=== PATIENT | female | born 1950 | race Caucasian/White ===

== ENCOUNTER 2020-01-14 10:35 | Inpatient (IN) | payer MEDICARE ==
[~2020-01-14] VITALS: Ht 157.5 cm; Wt 152.4 kg
[2020-01-14 10:55] LABS: BASOPHILS % (AUTO) 0.5 % (0.0-5.0); EOSINOPHILS % (AUTO) 7.7 % (0.0-8.0); HEMATOCRIT 37.8 % (36-48); LYMPHOCYTES % (AUTO) 21.8 % (21.0-51.0); MEAN CORPUSCULAR HEMOGLOBIN 30.4 pg (27.0-33.0); MEAN CORPUSCULAR HGB CONC 32.3 g/dL (32.0-36.0); MEAN CORPUSCULAR VOLUME 94.3 fL (79-99); MONOCYTES % (AUTO) 7.9 % (3.0-13.0); NEUTROPHILS % (AUTO) 61.8 % (40.0-77.0); PLATELET COUNT (AUTO) 235 K/uL (130-400); RED BLOOD CELL COUNT(AUTO) 4.01 MIL/uL (4.00-5.50); WHITE BLOOD COUNT (AUTO) 6.2 K/uL (4.8-10.8)
[2020-01-14 11:05] LABS: ALBUMIN 3.2 g/dL (3.5-5.0); BILIRUBIN,TOTAL 0.4 mg/dL (0.2-1.0); CREATININE 0.9 mg/dL (0.5-1.5); POTASSIUM 3.9 mmol/L (3.5-5.1)
[2020-01-14 11:43] LABS: B-TYPE NATRIURETIC PEPTIDE 34 pg/mL (0-100)
[2020-01-14 12:27] LABS: INR 0.91 (0.85-1.15); PARTIAL THROMBOPLASTIN TIME 26.6 SEC (26.3-35.5); PROTHROMBIN TIME 9.9 SEC (9.6-11.6)
[2020-01-14 13:17] LABS: APPEARANCE,URINE Clear (CLEAR); BILIRUBIN,URINE Negative (NEGATIVE); COLOR,URINE Yellow (YELLOW); GLUCOSE, URINE (UA) Negative (NEGATIVE); KETONES,URINE Negative (NEGATIVE); LEUKOCYTE ESTERASE ,URINE Negative (NEGATIVE); NITRATE,URINE Negative (NEGATIVE); OCCULT BLOOD,URINE Negative (NEGATIVE); PROTEIN,URINE Negative (NEGATIVE); UROBILINOGEN,URINE 0.2 mg/dL (0.2-1.0)
[2020-01-14] MEDS ORDERED: KETOROLAC TROMETHAMINE 30MG/ML ONE (13:38)
[2020-01-14] MEDS ORDERED: FUROSEMIDE 10 MG/ML 4ML VIAL ONE (13:38)
[2020-01-14] MEDS ORDERED: SODIUM CHLORIDE 0.9% 1000ML 1,000 ML IV ONE (15:22)
[2020-01-14] MEDS ORDERED: ZOSYN 3.375GM+NS 50ML 50 ML IV ONE (15:22)
[2020-01-14] MEDS ORDERED: DEXTROSE 50%-WATER 50 ML DISP.SYRIN IV PRN (15:30)
[2020-01-14] MEDS ORDERED: ASPIRIN 325MG EC TAB 325 MG TABLET.DR PO SCH (15:30)
[2020-01-14] MEDS ORDERED: GLUCAGON 1MG KIT 1 MG ML IM PRN (15:30)
[2020-01-14] MEDS ORDERED: NITROGLYCERIN 0.4 MG SL TAB SL PRN (15:30)
[2020-01-14] MEDS ORDERED: ONDANSETRON HCL 4 MG/2 ML VIAL IVP PRN (15:30)
[2020-01-14] MEDS ORDERED: METOPROLOL TARTRATE 25 MG TAB ONE (15:46)
[2020-01-14] MEDS: ZOSYN 3.375GM+NS 50ML 50 ML IV SCH (16:00)
[2020-01-14 16:08] LABS: CREATINE KINASE, TOTAL 116 U/L (21-232); MYOGLOBIN 45 ng/mL (10-92); TROPONIN I 0.11 ng/mL (0.00-0.06)
[2020-01-14] MEDS ORDERED: SODIUM CHLORIDE 0.9% 1000ML 1,000 ML IV SCH (16:15)
[2020-01-14] MEDS ORDERED: POTASSIUM CHLORIDE 20MEQ/100ML 100 ML IV PRN (16:15)
[2020-01-14] MEDS ORDERED: POTASSIUM CHLORIDE 10% ELIXIR 20 MEQ/15 ML UDCUP PO PRN (16:15)
[2020-01-14] MEDS ORDERED: GUAIFENESIN-DM 200/20 MG 10 ML PO PRN (16:15)
[2020-01-14] MEDS ORDERED: LIDOCAINE HCL-MPF 1% 2ML VIAL IJ PRN (16:15)
[2020-01-14] MEDS ORDERED: ACETAMINOPHEN 325 MG TAB PO PRN ×2 (16:15)
[2020-01-14 16:18] LABS: HEMOGLOBIN A1C 9.2 % (4.0-6.0)
[2020-01-14] MEDS: INSULIN HUMULIN R 100 UNIT/ML 3ML SQ SCH ×2 (16:30→21:00)
[2020-01-14 17:17] VITALS: BP 140/52
[2020-01-14] MEDS ORDERED: RENAL DOSE IV SCH ×2 (17:30)
[2020-01-14] MEDS ORDERED: VANCOMYCIN PROTOCOL PER PHARMACY IV SCH (17:45)
[2020-01-14] MEDS ORDERED: COMPOUND IV REFRIGERATED 1 EACH IVSOLN MISC PRN (17:45)
[2020-01-14] MEDS ORDERED: VANCOMYCIN 2 GM in SODIUM CHLORIDE 0.9% 500ML 500 ML IV ONE (18:00)
[2020-01-14] MEDS ORDERED: CEPH500C2 PO (18:05)
[2020-01-14] MEDS ORDERED: SULF1TAB41 PO (18:07)
[2020-01-14] MEDS ORDERED: ACET1TAB25 PO (18:09)
[2020-01-14] MEDS: PANTOPRAZOLE SODIUM 40 MG TABLET.DR PO SCH (19:45)
[2020-01-14] MEDS: ATORVASTATIN CALCIUM 20 MG TABLET PO SCH (20:23)
[2020-01-14] MEDS: FUROSEMIDE 10 MG/ML 2ML VIAL IVP SCH (20:24)
[2020-01-14] MEDS: METOPROLOL TARTRATE 25 MG TAB PO SCH (20:24)
[2020-01-14] MEDS: ENOXAPARIN SODIUM 120 MG/0.8ML SQ SCH (20:24)
[2020-01-14 20:38] VITALS: BP 126/50
[2020-01-14] MEDS ORDERED: CLOPIDOGREL BISULFATE 300 MG TAB PO SCH (20:45)
[2020-01-14 21:30] LABS: TROPONIN I 0.11 ng/mL (0.00-0.06)
[2020-01-14 21:34] LABS: CRP QUANTITATIVE 59.4 mg/L (0.00-9.0); THYROID STIMULATING HORMONE 2.46 uIU/mL (0.36-3.74)
[2020-01-14] MEDS: MORPHINE SULFATE 2 MG/ML 1ML SYG IVP PRN (22:28)
[2020-01-15] MEDS: ZOSYN 3.375GM+NS 50ML 50 ML IV SCH ×2 (00:24→08:20)
[2020-01-15 00:32] VITALS: BP 116/50
[2020-01-15] MEDS: MORPHINE SULFATE 2 MG/ML 1ML SYG IVP PRN ×2 (04:15→17:58)
[2020-01-15 04:45] VITALS: BP 135/47
[2020-01-15 04:50] LABS: BASOPHILS % (AUTO) 0.3 % (0.0-5.0); EOSINOPHILS % (AUTO) 6.6 % (0.0-8.0); LYMPHOCYTES % (AUTO) 19.4 % (21.0-51.0); MEAN CORPUSCULAR HEMOGLOBIN 29.9 pg (27.0-33.0); MEAN CORPUSCULAR HGB CONC 31.9 g/dL (32.0-36.0); MEAN CORPUSCULAR VOLUME 93.7 fL (79-99); MONOCYTES % (AUTO) 5.9 % (3.0-13.0); NEUTROPHILS % (AUTO) 67.3 % (40.0-77.0); PLATELET COUNT (AUTO) 229 K/uL (130-400); RED BLOOD CELL COUNT(AUTO) 3.95 MIL/uL (4.00-5.50); RED CELL DISTRIBUTION WIDTH 13.2 % (11.0-15.5); WHITE BLOOD COUNT (AUTO) 6.6 K/uL (4.8-10.8)
[2020-01-15 05:01] LABS: CREATININE 0.9 mg/dL (0.5-1.5); POTASSIUM 3.7 mmol/L (3.5-5.1)
[2020-01-15] MEDS: INSULIN HUMULIN R 100 UNIT/ML 3ML SQ SCH ×4 (05:57→21:05)
[2020-01-15 08:00] VITALS: BP 131/50
[2020-01-15] MEDS: PANTOPRAZOLE SODIUM 40 MG TABLET.DR PO SCH (08:20)
[2020-01-15] MEDS: METOPROLOL TARTRATE 25 MG TAB PO SCH (08:20)
[2020-01-15] MEDS: CLOPIDOGREL BISULFATE 75 MG TAB PO SCH (08:21)
[2020-01-15] MEDS: ASPIRIN 81MG TAB.CHEW PO SCH (08:21)
[2020-01-15] MEDS: ENOXAPARIN SODIUM 120 MG/0.8ML SQ SCH (08:22)
[2020-01-15] MEDS: FUROSEMIDE 10 MG/ML 2ML VIAL IVP SCH (08:22)
[2020-01-15] MEDS: NITROGLYCERIN 0.2 MG/HR PATCH TD SCH (08:23)
--- NOTE | 2020-01-15 08:40 | NUR ---
DYSPHAGIA EVAL COMPLETED. -S/S OF ASPIRATION AT THIS TIME. RECOMMEND REGULAR SOLIDS, THIN LIQUIDS, PILLS WHOLE WITH LIQUIDS TOLERATED. STRICT COMPENSATORY STRATEGIES: SITTING UPRIGHT, SMALL BITES/SIPS, SLOW PACE WITH P.O. INTAKE. DIRECTOR OF SOLUTIONS ARCHITECTURE EDUCATED PATIENT ON RISKS AND CONSEQUENCES OF ASPIRATION. PATIENT VOICED UNDERSTANDING. ALL QUESTIONS ANSWERED AT THIS TIME. DIRECTOR OF SOLUTIONS ARCHITECTURE COORDINATED RESULTS AND RECOMMENDATIONS WITH NURSE VYAS ABOUT THE IMPORTANCE OF EATING IN AN UPRIGHT POSITION. Addendum: 01/15/[address]IMMY SOTO Amended: Links added.
[2020-01-15] MEDS ORDERED: ISOSORBIDE MONO 30MG TAB SR PO SCH (09:00)
[2020-01-15] MEDS ORDERED: ENOXAPARIN SODIUM 40 MG/0.4 ML SYRINGE SQ SCH (09:00)
[2020-01-15] MEDS: VANCOMYCIN 1.5 GM in SODIUM CHLORIDE 0.9% 250 ML IV SCH (10:28)
[2020-01-15] MEDS ORDERED: ISOSORBIDE MONO 60 MG TAB.SR PO SCH (11:15)
[2020-01-15] MEDS ORDERED: FUROSEMIDE 10 MG/ML 2ML VIAL IV SCH (11:30)
[2020-01-15] MEDS: CEFAZOLIN SODIUM 1 GM VIAL IVP SCH ×2 (11:54→21:01)
[2020-01-15] MEDS: ACETAMINOPHEN-CODEINE 300/30MG TAB PO PRN (11:54)
[2020-01-15 12:00] VITALS: BP 119/50
[2020-01-15] MEDS: METOPROLOL TARTRATE 50 MG TAB PO SCH ×2 (12:00→21:00)
--- NOTE | 2020-01-15 12:46 | NUR ---
DR. KEYES HERE , FOR WOUND CARE. AND EXPLAIN TO PT OF PLAN OF CARE,
[2020-01-15] MEDS ORDERED: HEPARIN IV SCH ×2 (14:15)
[2020-01-15] MEDS ORDERED: SODIUM CHLORIDE 0.9% IV SCH ×2 (14:15)
[2020-01-15 16:09] VITALS: BP 101/47
--- NOTE | 2020-01-15 16:14 | NUR ---
[facility] CM met with pt and spouse in room discussed dc plans. Pt verbalized she was independent before until recently became semi-independent, lives at home with spouse. Pt has a rollator walker, shower chair for spouse, and cane. Denies any other equipments/services. Feels safe to go back home, doesn't drive, spouse able to assist with transportation and needs as necessary. DC plan to home once stable. CM to continue to follow up. Addendum: 01/15/20 at 1616 by SHEN CHOI LVN CM Amended: Links added.
[2020-01-15] MEDS: FUROSEMIDE 10 MG/ML 2ML VIAL IV SCH (17:48)
[2020-01-15 19:25] LABS: INR 0.93 (0.85-1.15); PARTIAL THROMBOPLASTIN TIME 30.3 SEC (26.3-35.5); PROTHROMBIN TIME 10.1 SEC (9.6-11.6)
[2020-01-15] MEDS ORDERED: HEPARIN 25000 UNITS/250 ML D5W 250 ML IV SCH (20:00)
[2020-01-15 20:30] VITALS: BP 100/46
[2020-01-15] MEDS ORDERED: DIPHENHYDRAMINE HCL 25 MG CAPSULE PO SCH (20:30)
[2020-01-15] MEDS: ATORVASTATIN CALCIUM 20 MG TABLET PO SCH (21:01)
[2020-01-15] MEDS ORDERED: HEPARIN SODIUM 5000UNIT/ML 1ML VIAL ONE (21:51)
[2020-01-15] MEDS: HEPARIN IV SCH ×2 (21:59)
[2020-01-15] MEDS: SODIUM CHLORIDE 0.9% IV SCH ×2 (21:59)
[2020-01-15] MEDS ORDERED: HEPARIN SODIUM 5000UNIT/ML 1ML VIAL IV SCH (23:00)
[2020-01-16] VITALS: BP 110/52
[2020-01-16] MEDS: FUROSEMIDE 10 MG/ML 2ML VIAL IV SCH ×3 (00:10→16:49)
[2020-01-16] MEDS: INSULIN HUMULIN R 100 UNIT/ML 3ML SQ SCH ×5 (00:10→21:14)
[2020-01-16] MEDS: MORPHINE SULFATE 2 MG/ML 1ML SYG IVP PRN ×2 (00:45→22:43)
[2020-01-16] MEDS: CEFAZOLIN SODIUM 1 GM VIAL IVP SCH ×3 (03:11→21:04)
[2020-01-16] MEDS ORDERED: HEPARIN 25000 UNITS/250 ML D5W 250 ML IV ONE (04:24)
[2020-01-16] MEDS ORDERED: SODIUM CHLORIDE 0.9% 250 ML IV ONE (04:55)
[2020-01-16] MEDS ORDERED: HEPARIN SODIUM 5000UNIT/ML 1ML VIAL ONE (04:59)
--- NOTE | 2020-01-16 05:07 | NUR ---
HEPARIN DRIP IN NS MIXED IN PHARMACY, NOT AVAILABLE AND DRIP HANGING IS COMPLETE. 250ML NS PULLED FROM [email or web address] ALONG WITH 25,000 UNITS OF HEPARIN (5 VIALS OF 5,000 UNITS). HEPARIN DRAWN UP AND MIXED IN 250ML NS. WITNESS BY 2ND RN.
[2020-01-16 05:09] VITALS: BP 116/53
[2020-01-16 05:38] LABS: BASOPHILS % (AUTO) 0.2 % (0.0-5.0); EOSINOPHILS % (AUTO) 7.7 % (0.0-8.0); HEMATOCRIT 35.7 % (36-48); LYMPHOCYTES % (AUTO) 16.3 % (21.0-51.0); MEAN CORPUSCULAR HEMOGLOBIN 30.7 pg (27.0-33.0); MEAN CORPUSCULAR HGB CONC 32.8 g/dL (32.0-36.0); MEAN CORPUSCULAR VOLUME 93.7 fL (79-99); MONOCYTES % (AUTO) 6.6 % (3.0-13.0); NEUTROPHILS % (AUTO) 68.8 % (40.0-77.0); PLATELET COUNT (AUTO) 254 K/uL (130-400); RED BLOOD CELL COUNT(AUTO) 3.81 MIL/uL (4.00-5.50); RED CELL DISTRIBUTION WIDTH 12.8 % (11.0-15.5); WHITE BLOOD COUNT (AUTO) 9.5 K/uL (4.8-10.8)
--- NOTE | 2020-01-16 05:43 | NUR ---
PT REFUSED COVID PCR SWAB
[2020-01-16 05:49] LABS: CREATININE 0.9 mg/dL (0.5-1.5); MAGNESIUM 1.7 mg/dL (1.80-2.40); POTASSIUM 3.5 mmol/L (3.5-5.1)
[2020-01-16] MEDS: POTASSIUM CHLORIDE 20 MEQ ERTAB PO PRN ×2 (05:54→21:05)
[2020-01-16 05:55] LABS: INR 1.02 (0.85-1.15)
[2020-01-16 06:34] LABS: PARTIAL THROMBOPLASTIN TIME > 120.0 SEC (26.3-35.5)
--- NOTE | 2020-01-16 07:43 | NUR ---
DR. WATKINS IN TO SEE PT.
--- NOTE | 2020-01-16 08:00 | NUR ---
DR. KLEIN IN TO SEE PT, DISCUSSED AT LENGTH PROS AND CONS OF HAVING A HEART CATH. , PT. OPTED TO BE TREATED CONSERVATIVELY WITH MEDICATIONS ONLY.
--- NOTE | 2020-01-16 08:20 | NUR ---
FOLLOW UP COMPLETED. STUFFER COORDINATED WITH NURSE TANNER. PER NURSE, PATIENT WAS NPO FOR PROCEDURE. HOWEVER, PROCEDURE WAS CANCELLED AND WILL RESUME WITH P.O. STUFFER WILL FOLLOW UP WITH NURSE TO SEE HOW PATIENT TOLERATES RECOMMENDED DIET. Addendum: 01/16/[address] JIMMY SOTO Amended: Links added.
[2020-01-16] MEDS ORDERED: POTASSIUM CHLORIDE 20 MEQ ERTAB PO SCH (08:30)
[2020-01-16] MEDS: ASPIRIN 81MG TAB.CHEW PO SCH (08:50)
[2020-01-16] MEDS: METOPROLOL TARTRATE 50 MG TAB PO SCH ×2 (08:50→21:05)
[2020-01-16] MEDS: PANTOPRAZOLE SODIUM 40 MG TABLET.DR PO SCH (08:50)
[2020-01-16] MEDS: CLOPIDOGREL BISULFATE 75 MG TAB PO SCH (08:51)
[2020-01-16] MEDS: NITROGLYCERIN 0.2 MG/HR PATCH TD SCH (08:51)
[2020-01-16] MEDS: VANCOMYCIN 1.5 GM in SODIUM CHLORIDE 0.9% 250 ML IV SCH (08:52)
[2020-01-16 09:16] VITALS: BP 127/52
--- NOTE | 2020-01-16 09:30 | NUR ---
VACUUM APPLICATOR OPERATOR NOTIFIED OF HEART CATH BEING CX.
[2020-01-16] MEDS: VANCOMYCIN 1.75 GM in SODIUM CHLORIDE 0.9% 250 ML IV SCH (10:07)
[2020-01-16] MEDS: MAGNESIUM 2GM PREMIX 50ML 50 ML IV SCH (10:07)
[2020-01-16 12:40] LABS: INR 0.98 (0.85-1.15); PARTIAL THROMBOPLASTIN TIME 75.8 SEC (26.3-35.5); PROTHROMBIN TIME 10.6 SEC (9.6-11.6)
[2020-01-16 13:12] VITALS: BP_SYST 106; BP_DIAS 43; BP_DIAS 90
[2020-01-16] MEDS ORDERED: INSULIN GLARGINE 100 UNITS/ML 10 ML VIAL SQ ONE (14:30)
--- NOTE | 2020-01-16 14:49 | NUR ---
[facility] CONSULT PATIENT WAS SEEN BY [facility] PHYSICIAN DR. SRINI HSU ON 01/15/2020; REPORT AND ORDERS GIVEN TO FLOOR NURSE. Addendum: 01/16/20 at 1452 by JANINA CARTY LVN LVN W Amended: Links added.
--- NOTE | 2020-01-16 16:16 | NUR ---
RD NOTIFICATION Pt admitted due to BLE cellulitis, chest pain, and CHF exacerbation RD consulted due to new DM dx. Pt is currently on a CLD. Pt was previously on a 75 gm CC diet and consuming 100% Pt's current BMI of 65.3 is considered Obesity III. 310% IBW classified as Morbid obesity. RD RECOMMENDATION: When medically feasible to advance diet, consider a 75 gm CC with a heart healthy modifier (low Na, low fat, low cholesterol) Monitor PO intake RD to follow with diet education. Handouts placed in medical chart and left with RN. - handouts left in chart: Type 2 DM, Sodium free flavoring tips, and Fast restricted diet educations. RD will continue to follow LABS: BG 189, A1C 9.2, MG 1.7, TOT CA 8.7, ALB 3.2, TG 210, CHOL 215, LDL 137 Addendum: 01/16/20 at [address] Amended: Links added.
[2020-01-16 16:36] VITALS: BP 113/49
[2020-01-16 20:32] LABS: INR 0.94 (0.85-1.15); PARTIAL THROMBOPLASTIN TIME 31.8 SEC (26.3-35.5); PROTHROMBIN TIME 10.2 SEC (9.6-11.6)
[2020-01-16 20:45] VITALS: BP 124/52
[2020-01-16] MEDS: ATORVASTATIN CALCIUM 20 MG TABLET PO SCH (21:05)
[2020-01-16] MEDS: SODIUM CHLORIDE 0.9% IV SCH ×2 (21:26)
[2020-01-16] MEDS: HEPARIN IV SCH ×2 (21:26)
[2020-01-16] MEDS: ACETAMINOPHEN-CODEINE 300/30MG TAB PO PRN (21:50)
[2020-01-17] VITALS (7 sets, daily range): BP systolic 103–131; BP diastolic 44–59
[2020-01-17] MEDS: FUROSEMIDE 10 MG/ML 2ML VIAL IV SCH ×3 (00:26→21:33)
[2020-01-17] MEDS: POTASSIUM CHLORIDE 20 MEQ ERTAB PO PRN ×3 (00:28→23:43)
[2020-01-17 02:57] LABS: HEMATOCRIT 35.3 % (36-48); MEAN CORPUSCULAR HEMOGLOBIN 30.6 pg (27.0-33.0); MEAN CORPUSCULAR HGB CONC 32.6 g/dL (32.0-36.0); MEAN CORPUSCULAR VOLUME 93.9 fL (79-99); PLATELET COUNT (AUTO) 220 K/uL (130-400); RED BLOOD CELL COUNT(AUTO) 3.76 MIL/uL (4.00-5.50); RED CELL DISTRIBUTION WIDTH 13.1 % (11.0-15.5); WHITE BLOOD COUNT (AUTO) 8.3 K/uL (4.8-10.8)
[2020-01-17 03:14] LABS: ALBUMIN 2.4 g/dL (3.5-5.0); BILIRUBIN,TOTAL 0.4 mg/dL (0.2-1.0); CREATININE 1.2 mg/dL (0.5-1.5); MAGNESIUM 3.2 mg/dL (1.80-2.40); POTASSIUM 3.8 mmol/L (3.5-5.1); TOTAL PROTEIN, SERUM 5.9 g/dL (6.0-8.3)
[2020-01-17] MEDS: CEFAZOLIN SODIUM 1 GM VIAL IVP SCH ×3 (03:17→21:32)
[2020-01-17] MEDS: ACETAMINOPHEN-CODEINE 300/30MG TAB PO PRN (03:27)
[2020-01-17 03:54] LABS: INR 0.99 (0.85-1.15); PROTHROMBIN TIME 10.7 SEC (9.6-11.6)
[2020-01-17 04:00] LABS: PARTIAL THROMBOPLASTIN TIME 117.4 SEC (26.3-35.5)
[2020-01-17 05:13] LABS: BAND NEUTROPHILS % (MANUAL) 5 % (0-2); BASOPHILS % (MANUAL) 2 % (0-2); EOSINOPHILS % (MANUAL) 12 % (1-6); LYMPHOCYTES % (MANUAL) 15 % (22-44); MAN.DIFF COMMENT-IMPRESSION MANUAL DIFFERENTIAL; MONOCYTES % (MANUAL) 8 % (2-9); REACTIVE LYMPHOCYTES 2 % (0-0); SEGMENTED NEUTROPHILS % 56 % (40-70)
[2020-01-17] MEDS: INSULIN HUMULIN R 100 UNIT/ML 3ML SQ SCH ×7 (05:44→21:37)
[2020-01-17] MEDS ORDERED: INSULIN GLARGINE 100 UNITS/ML 10 ML VIAL SQ SCH (07:00)
[2020-01-17] MEDS: VANCOMYCIN 1.5 GM in SODIUM CHLORIDE 0.9% 250 ML IV SCH (08:06)
[2020-01-17] MEDS ORDERED: HEPARIN 25000 UNITS/250 ML D5W 250 ML IV ONE ×2 (08:22→22:49)
[2020-01-17 09:00] LABS: INR 0.98 (0.85-1.15); PARTIAL THROMBOPLASTIN TIME 57.1 SEC (26.3-35.5); PROTHROMBIN TIME 10.6 SEC (9.6-11.6)
[2020-01-17] MEDS: METOPROLOL TARTRATE 50 MG TAB PO SCH ×2 (09:36→21:32)
[2020-01-17] MEDS: CLOPIDOGREL BISULFATE 75 MG TAB PO SCH (09:54)
[2020-01-17] MEDS: ASPIRIN 81MG TAB.CHEW PO SCH (09:54)
[2020-01-17] MEDS: PANTOPRAZOLE SODIUM 40 MG TABLET.DR PO SCH (09:54)
[2020-01-17] MEDS: NITROGLYCERIN 0.2 MG/HR PATCH TD SCH (10:04)
[2020-01-17] MEDS: VANCOMYCIN 1.75 GM in SODIUM CHLORIDE 0.9% 250 ML IV SCH (10:20)
[2020-01-17] MEDS: ATORVASTATIN CALCIUM 20 MG TABLET PO SCH (21:32)
[2020-01-18] MEDS: ACETAMINOPHEN-CODEINE 300/30MG TAB PO PRN ×2 (00:20→18:46)
[2020-01-18 04:27] VITALS: BP 101/48
[2020-01-18 05:08] LABS: BASOPHILS % (AUTO) 0.5 % (0.0-5.0); EOSINOPHILS % (AUTO) 10.6 % (0.0-8.0); HEMATOCRIT 36.6 % (36-48); LYMPHOCYTES % (AUTO) 22.5 % (21.0-51.0); MEAN CORPUSCULAR HEMOGLOBIN 30.4 pg (27.0-33.0); MEAN CORPUSCULAR HGB CONC 32.5 g/dL (32.0-36.0); MEAN CORPUSCULAR VOLUME 93.4 fL (79-99); MONOCYTES % (AUTO) 7.5 % (3.0-13.0); NEUTROPHILS % (AUTO) 58.5 % (40.0-77.0); PLATELET COUNT (AUTO) 260 K/uL (130-400); RED BLOOD CELL COUNT(AUTO) 3.92 MIL/uL (4.00-5.50); RED CELL DISTRIBUTION WIDTH 12.8 % (11.0-15.5); WHITE BLOOD COUNT (AUTO) 8.6 K/uL (4.8-10.8)
[2020-01-18 05:28] LABS: CREATININE 1.1 mg/dL (0.5-1.5); POTASSIUM 3.8 mmol/L (3.5-5.1)
[2020-01-18] MEDS: CEFAZOLIN SODIUM 1 GM VIAL IVP SCH (05:54)
[2020-01-18] MEDS: INSULIN HUMULIN R 100 UNIT/ML 3ML SQ SCH ×7 (06:15→20:57)
--- NOTE | 2020-01-18 06:39 | NUR ---
NEW UPDATE WAS GIVEN 40MEQ KDUR FOR A K+ OF 3.6, 3.8 RESULT THIS AM. CONTINUES ON THE HEPARIN DRIP BY DR. NULL FOR ACS PROTOCOL WITH PLANS TO STOP TODAY AND PT TO BE STARTED ON SOME ANTICOAGULANT BY THE [facility]. PTT AT 57.7 AND 68.9 AT MN AND 0600, NO CHANGES MADE ON THE DRIP RATE. BLE LESS SWOLLEN, LEGS WRINKLY AND HAD GOTTEN A LOT SMALLER, PT HAPPY ABOUT THIS. WITH 1,700 CC URINE OUTPUT FROM THE FC, PT NOW ON LASIX 20MG IV Q 12HRS. PT WANTED TO BE ABLE TO MOVE MORE LIKE TO START AMBULATING INSIDE THE ROOM WITH PT.
[2020-01-18 07:47] VITALS: BP 140/55
[2020-01-18] MEDS: METOPROLOL TARTRATE 50 MG TAB PO SCH ×2 (08:45→20:56)
[2020-01-18] MEDS: ASPIRIN 81MG TAB.CHEW PO SCH (08:45)
[2020-01-18] MEDS: CLOPIDOGREL BISULFATE 75 MG TAB PO SCH (08:45)
[2020-01-18] MEDS: PANTOPRAZOLE SODIUM 40 MG TABLET.DR PO SCH (08:45)
[2020-01-18] MEDS: VANCOMYCIN 1.75 GM in SODIUM CHLORIDE 0.9% 250 ML IV SCH (08:46)
[2020-01-18] MEDS: FUROSEMIDE 10 MG/ML 2ML VIAL IV SCH (08:46)
[2020-01-18] MEDS: VANCOMYCIN 1.5 GM in SODIUM CHLORIDE 0.9% 250 ML IV SCH (08:46)
[2020-01-18] MEDS: INSULIN GLARGINE 100 UNITS/ML 10 ML VIAL SQ SCH (08:49)
--- NOTE | 2020-01-18 09:10 | NUR ---
FOLLOW UP COMPLETED. PIPE MAKER COORDINATED WITH NURSE MCKEE. PER NURSE, NO CONCERNS WITH PATIENT'S DIET NOR S/S OF ASPIRATION NOTED. PLEASE NOTIFY PIPE MAKER IF ANY S/S OF ASPIRATION ARE NOTED. Addendum: 01/18/[address]ITTANY Amended: Links added.
[2020-01-18 11:36] VITALS: BP 118/59
[2020-01-18] MEDS: LEVOFLOXACIN 500 MG TABLET PO SCH (12:23)
[2020-01-18] MEDS: NITROGLYCERIN 0.2 MG/HR PATCH TD SCH (12:23)
[2020-01-18] MEDS: MORPHINE SULFATE 2 MG/ML 1ML SYG IVP PRN (13:31)
[2020-01-18 16:30] VITALS: BP 125/69
[2020-01-18] MEDS: FUROSEMIDE 40 MG TABLET PO SCH (16:46)
[2020-01-18] MEDS ORDERED: DIPHENHYDRAMINE HCL 25 MG CAPSULE PO ONE (18:30)
[2020-01-18] MEDS: ENOXAPARIN SODIUM 40 MG/0.4 ML SYRINGE SQ SCH (18:39)
[2020-01-18 20:00] VITALS: BP 121/58
[2020-01-18] MEDS: ATORVASTATIN CALCIUM 20 MG TABLET PO SCH (20:56)
[2020-01-19] VITALS (7 sets, daily range): BP systolic 106–143; BP diastolic 52–68
[2020-01-19] MEDS: INSULIN HUMULIN R 100 UNIT/ML 3ML SQ SCH ×7 (06:10→20:06)
[2020-01-19] MEDS: INSULIN GLARGINE 100 UNITS/ML 10 ML VIAL SQ SCH (06:38)
[2020-01-19 08:07] LABS: CREATININE 1.1 mg/dL (0.5-1.5); MAGNESIUM 1.9 mg/dL (1.80-2.40); POTASSIUM 3.8 mmol/L (3.5-5.1)
[2020-01-19] MEDS: VANCOMYCIN 1.5 GM in SODIUM CHLORIDE 0.9% 250 ML IV SCH (09:00)
[2020-01-19] MEDS: CLOPIDOGREL BISULFATE 75 MG TAB PO SCH (09:20)
[2020-01-19] MEDS: ISOSORBIDE MONO 30MG TAB SR PO SCH (09:20)
[2020-01-19] MEDS: ACETAMINOPHEN-CODEINE 300/30MG TAB PO PRN (09:21)
[2020-01-19] MEDS: ASPIRIN 81MG TAB.CHEW PO SCH (09:22)
[2020-01-19] MEDS: LEVOFLOXACIN 500 MG TABLET PO SCH (09:22)
[2020-01-19] MEDS: PANTOPRAZOLE SODIUM 40 MG TABLET.DR PO SCH (09:22)
[2020-01-19] MEDS: FUROSEMIDE 40 MG TABLET PO SCH ×2 (09:22→16:36)
[2020-01-19] MEDS: METOPROLOL TARTRATE 50 MG TAB PO SCH ×2 (09:23→20:08)
[2020-01-19] MEDS: ENOXAPARIN SODIUM 40 MG/0.4 ML SYRINGE SQ SCH (09:23)
[2020-01-19] MEDS: VANCOMYCIN 1.75 GM in SODIUM CHLORIDE 0.9% 250 ML IV SCH (09:24)
[2020-01-19] MEDS ORDERED: PHARMACY COMMUNICATION MISC SCH (10:30)
[2020-01-19] MEDS: DIPHENHYDRAMINE HCL 25 MG CAPSULE PO PRN ×2 (11:21→16:39)
[2020-01-19] MEDS: DIPHENHYDRAMINE HCL 2% 30 GM CREAM.GM. TP SCH ×2 (11:43→20:09)
--- NOTE | 2020-01-19 13:11 | NUR ---
RD FOLLOW UP Pt is currently on a 75 gm CC with a modifier of 6 small meals /day PO consumption for 01/19/20 was 100% for breakfast as per EMR Pt is tolerating diet. Pt is on contact precautions. Diet educational material in medical chart. RD called to pt's room, no answer. RD RECOMMENDATION: Continue current diet order. Monitor PO intake When medically feasible, consider MVI supplementation. RD will continue to follow LABS: CL 100, CO2 33, BUN 20, CREAT 1.1, GFR 52, BG `72, TOT CA 9.2, ALB 2.4 Addendum: 01/19/20 at [address] Amended: Links added.
--- NOTE | 2020-01-19 13:37 | NUR ---
CALLED AND NOTIFIED RT, BABATUNDE REGARDING WEANING OFF O2 BABATUNDE VERBALIZED UNDERSTANDING.
[2020-01-19] MEDS ORDERED: ENOXAPARIN SODIUM 40 MG/0.4 ML SYRINGE SQ SCH (19:00)
[2020-01-19] MEDS: ATORVASTATIN CALCIUM 20 MG TABLET PO SCH (20:08)
[2020-01-20] MEDS: DIPHENHYDRAMINE HCL 25 MG CAPSULE PO PRN ×4 (01:08→22:40)
[2020-01-20 03:11] VITALS: BP 106/35
[2020-01-20 05:50] LABS: CREATININE 1.1 mg/dL (0.5-1.5); MAGNESIUM 1.8 mg/dL (1.80-2.40); POTASSIUM 3.5 mmol/L (3.5-5.1)
[2020-01-20 06:13] VITALS: BP 130/52
[2020-01-20] MEDS: MAGNESIUM 2GM PREMIX 50ML 50 ML IV SCH (06:45)
[2020-01-20] MEDS: INSULIN HUMULIN R 100 UNIT/ML 3ML SQ SCH ×7 (06:46→21:33)
[2020-01-20] MEDS: INSULIN GLARGINE 100 UNITS/ML 10 ML VIAL SQ SCH (06:50)
[2020-01-20] MEDS: CLOPIDOGREL BISULFATE 75 MG TAB PO SCH (08:22)
[2020-01-20] MEDS: METOPROLOL TARTRATE 50 MG TAB PO SCH ×2 (08:22→21:27)
[2020-01-20] MEDS: PANTOPRAZOLE SODIUM 40 MG TABLET.DR PO SCH (08:22)
[2020-01-20] MEDS: ASPIRIN 81MG TAB.CHEW PO SCH (08:22)
[2020-01-20] MEDS: FUROSEMIDE 40 MG TABLET PO SCH ×2 (08:23→17:01)
[2020-01-20] MEDS: ISOSORBIDE MONO 30MG TAB SR PO SCH (08:23)
[2020-01-20] MEDS: ENOXAPARIN SODIUM 40 MG/0.4 ML SYRINGE SQ SCH (08:27)
[2020-01-20] MEDS: DIPHENHYDRAMINE HCL 2% 30 GM CREAM.GM. TP SCH ×2 (08:28→21:28)
[2020-01-20] MEDS ORDERED: POTASSIUM CHLORIDE 20 MEQ ERTAB PO SCH (08:30)
[2020-01-20] MEDS: VANCOMYCIN 1.75 GM in SODIUM CHLORIDE 0.9% 250 ML IV SCH (09:19)
[2020-01-20] MEDS: LEVOFLOXACIN 500 MG TABLET PO SCH (12:17)
[2020-01-20 12:23] VITALS: BP 130/79
[2020-01-20 16:00] VITALS: BP 122/61
[2020-01-20 20:46] VITALS: BP 124/40
[2020-01-20] MEDS: ATORVASTATIN CALCIUM 20 MG TABLET PO SCH (21:26)
[2020-01-20 23:59] VITALS: BP 121/44
[2020-01-21 04:00] VITALS: BP 123/49
[2020-01-21] MEDS: INSULIN GLARGINE 100 UNITS/ML 10 ML VIAL SQ SCH (06:04)
[2020-01-21] MEDS: INSULIN HUMULIN R 100 UNIT/ML 3ML SQ SCH ×7 (06:05→20:59)
[2020-01-21 06:25] LABS: BASOPHILS % (AUTO) 0.3 % (0.0-5.0); EOSINOPHILS % (AUTO) 11.5 % (0.0-8.0); HEMATOCRIT 36.7 % (36-48); LYMPHOCYTES % (AUTO) 17.5 % (21.0-51.0); MEAN CORPUSCULAR HEMOGLOBIN 30.5 pg (27.0-33.0); MEAN CORPUSCULAR HGB CONC 32.7 g/dL (32.0-36.0); MEAN CORPUSCULAR VOLUME 93.1 fL (79-99); MONOCYTES % (AUTO) 8.7 % (3.0-13.0); NEUTROPHILS % (AUTO) 61.6 % (40.0-77.0); PLATELET COUNT (AUTO) 249 K/uL (130-400); RED BLOOD CELL COUNT(AUTO) 3.94 MIL/uL (4.00-5.50); RED CELL DISTRIBUTION WIDTH 12.9 % (11.0-15.5); WHITE BLOOD COUNT (AUTO) 9.4 K/uL (4.8-10.8)
[2020-01-21 06:40] LABS: CREATININE 1.2 mg/dL (0.5-1.5); MAGNESIUM 2.1 mg/dL (1.80-2.40); POTASSIUM 3.7 mmol/L (3.5-5.1)
[2020-01-21 08:00] VITALS: BP 133/61
[2020-01-21] MEDS: PANTOPRAZOLE SODIUM 40 MG TABLET.DR PO SCH (08:55)
[2020-01-21] MEDS: ASPIRIN 81MG TAB.CHEW PO SCH (08:55)
[2020-01-21] MEDS: METOPROLOL TARTRATE 50 MG TAB PO SCH ×2 (08:55→20:59)
[2020-01-21] MEDS: CLOPIDOGREL BISULFATE 75 MG TAB PO SCH (08:56)
[2020-01-21] MEDS: FUROSEMIDE 40 MG TABLET PO SCH ×2 (08:56→18:27)
[2020-01-21] MEDS: ENOXAPARIN SODIUM 40 MG/0.4 ML SYRINGE SQ SCH (08:57)
[2020-01-21 12:00] VITALS: BP 124/68
--- NOTE | 2020-01-21 12:09 | NUR ---
BRANDON CATH. REMOVED, EMPTIED 400ML URINE. NASAL SWAB LT. NARE FOR RAPID COVIC DONE.
[2020-01-21] MEDS: DIPHENHYDRAMINE HCL 25 MG CAPSULE PO PRN ×2 (12:16→18:26)
[2020-01-21] MEDS: LEVOFLOXACIN 500 MG TABLET PO SCH (12:16)
[2020-01-21] MEDS: VANCOMYCIN 1.75 GM in SODIUM CHLORIDE 0.9% 250 ML IV SCH (12:17)
[2020-01-21] MEDS: ISOSORBIDE MONO 30MG TAB SR PO SCH (12:18)
[2020-01-21 16:00] VITALS: BP 132/62
--- NOTE | 2020-01-21 16:00 | NUR ---
SWABBED FOR RAPID COVIC-19. SPECIMEN WALKED TO LAB
--- NOTE | 2020-01-21 18:45 | NUR ---
IN TO SEE PT. NOW DISCHARGE ORDERS ENTERED. WILL ENDORSE TO INCOMING NURSE.
[2020-01-21] MEDS ORDERED: DiphenhydrAMINE HCL 50 MG/ML VIAL IV SCH (20:15)
[2020-01-21] MEDS ORDERED: DiphenhydrAMINE HCL 50 MG/ML VIAL ONE (20:18)
[2020-01-21 20:38] VITALS: BP_SYST 101; BP_SYST 142; BP_DIAS 37; BP_DIAS 52
[2020-01-21] MEDS: ATORVASTATIN CALCIUM 20 MG TABLET PO SCH (21:00)
[2020-01-22 00:02] VITALS: BP 138/53
[2020-01-22] MEDS ORDERED: LEVO500T89 PO (00:15)
[2020-01-22] MEDS ORDERED: DOXY100T2 PO (00:18)
[2020-01-22] MEDS ORDERED: FLUC100T8 PO (00:40)
[2020-01-22] MEDS ORDERED: TERB30CR13 TP (00:45)
== END 2020-01-22 02:15 | DRG 280 ==
LOC: EDH 10:35 → EDHIP 15:22 → 3DH 16:50
PROVIDERS: ADMIT Internal Medicine; ATTEND Internal Medicine
DX: I21.4 Non-ST elevation (NSTEMI) myocardial infarction (principal); I50.33 Acute on chronic diastolic (congestive) heart failure; L03.115 Cellulitis of right lower limb; Z68.44 Body mass index [BMI] 60.0-69.9, adult; L03.116 Cellulitis of left lower limb; Z66 Do not resuscitate; I89.0 Lymphedema, not elsewhere classified; E66.01 Morbid (severe) obesity due to excess calories; I11.0 Hypertensive heart disease with heart failure; E11.65 Type 2 diabetes mellitus with hyperglycemia; E88.81 Metabolic syndrome and other insulin resistance; Z20.828 Contact with and (suspected) exposure to other viral communicable diseases; E78.5 Hyperlipidemia, unspecified; I08.3 Combined rheumatic disorders of mitral, aortic and tricuspid valves; I87.2 Venous insufficiency (chronic) (peripheral); I25.119 Atherosclerotic heart disease of native coronary artery with unspecified angina pectoris; I25.2 Old myocardial infarction; Z98.51 Tubal ligation status; Z79.899 Other long term (current) drug therapy
CPT/HCPCS: 36415; 71045; 80048; 80053; 80061; 80202; 81003; 82550; 82948; 83036; 83735; 83874; 83880; 84132; 84145; 84443; 84484; 85025; 85610; 85651; 85730; 86140; 87070; 87076; 87077; 87186; 87426; 92610; 93005; 93306; 93356; 93970; 97039; G0378; J0690; J1200; J1644; J1650; J1815; J1885; J1940; J2543; J3370; J3475; J3480; J7030; J7040; J7050; Q0163

== ENCOUNTER 2023-09-16 17:00 | Emergency (ER) | payer MEDICAID, MEDICARE ==
[~2023-09-16] VITALS: Ht 152.4 cm; Wt 137.4 kg
[~2023-09-16 17:00] MED LIST: ASPI-1197 PO; BUPR75TA8 PO; CEPH500B PO; CLOP75TA32 PO; LISI5TAB21 PO
[2023-09-16 17:41] LABS: BASOPHILS # (AUTO) 0.03 K/uL (0.00-0.20); BASOPHILS % (AUTO) 0.4 % (0.0-5.0); EOSINOPHILS # (AUTO) 0.45 K/uL (0.00-0.70); EOSINOPHILS % (AUTO) 5.4 % (0.0-8.0); HEMATOCRIT 40.8 % (36-48); IMMATURE GRANULOCYTE ABSOLUTE 0.02 K/uL (0-1); LYMPHOCYTES % (AUTO) 24.1 % (21.0-51.0); MEAN CORPUSCULAR HEMOGLOBIN 30.7 pg (27.0-33.0); MEAN CORPUSCULAR HGB CONC 32.8 g/dL (32.0-36.0); MEAN CORPUSCULAR VOLUME 93.4 fL (79-99); MONOCYTES # (AUTO) 0.6 K/uL (0.1-1.0); MONOCYTES % (AUTO) 6.6 % (3.0-13.0); NEUTROPHILS # (AUTO) 5.3 K/uL (1.8-7.7); NEUTROPHILS % (AUTO) 63.3 % (40.0-77.0); PLATELET COUNT (AUTO) 230 K/uL (130-400); RED BLOOD CELL COUNT(AUTO) 4.37 MIL/uL (4.00-5.50); RED CELL DISTRIBUTION WIDTH 13.6 % (11.0-15.5); WHITE BLOOD COUNT (AUTO) 8.3 K/uL (4.8-10.8)
[2023-09-16 17:50] LABS: CREATININE 0.9 mg/dL (0.5-1.0); POTASSIUM 4.4 mmol/L (3.5-5.1)
[2023-09-16] MEDS ORDERED: INSULIN humuLIN R 100 UNIT/ML 3ML IV ONE (18:00)
[2023-09-16] MEDS: 0.9% NACL 500ML IV.SOLN 500 ML IV ONE (19:42)
[2023-09-16] MEDS: acetaMINOPHEN 500 MG TABLET PO ONE (19:42)
[2023-09-16 19:56] LABS: APPEARANCE,URINE CLEAR (CLEAR); BILIRUBIN,URINE NEGATIVE (NEGATIVE); COLOR,URINE YELLOW (YELLOW); GLUCOSE, URINE (UA) >=1000 mg/dL (NEGATIVE); KETONES,URINE NEGATIVE (NEGATIVE); LEUKOCYTE ESTERASE ,URINE TRACE Leu/uL (NEGATIVE); NITRATE,URINE POSITIVE (NEGATIVE); OCCULT BLOOD,URINE TRACE-INTACT (NEGATIVE); PROTEIN,URINE NEGATIVE (NEGATIVE)
[2023-09-16 20:11] LABS: ADD UA MICROSCOPIC YES
[2023-09-16 20:12] LABS: BACTERIA,URINE Moderate /HPF (None Seen); SQUAMOUS EPITHELIAL CELL,UR 50-100 /HPF (0-2)
[2023-09-16 20:13] LABS: MUCUS,URINE Rare LPF (None Seen)
[2023-09-16] MEDS ORDERED: cefTRIAXone 1G VIAL IVPB SCH ×2 (20:30→21:30)
[2023-09-16] MEDS ORDERED: CEPH500B PO (20:31)
[2023-09-16] MEDS ORDERED: HYDR15OI TP (20:31)
[2023-09-16] MEDS: cefTRIAXone 1G VIAL ONE (20:59)
[2023-09-16 21:11] VITALS: BP 126/74; PULSE 82; RESP 16; O2SAT 97
== END 2023-09-16 21:13 | disposition home or self-care (01) ==
LOC: EDH 17:00
DX: N39.0 Urinary tract infection, site not specified (principal); L30.8 Other specified dermatitis; E11.9 Type 2 diabetes mellitus without complications; E78.00 Pure hypercholesterolemia, unspecified; I10 Essential (primary) hypertension; Z79.82 Long term (current) use of aspirin; Z79.899 Other long term (current) drug therapy; Z88.1 Allergy status to other antibiotic agents; Z98.890 Other specified postprocedural states
CPT/HCPCS: 99284; 96374; 80048; 85025; 87086 ×2; 87186; 82948; 81001; 36415; J0696

== ENCOUNTER 2023-12-03 12:44 | Emergency (ER) | payer MEDICAID ==
[~2023-12-03] VITALS: Ht 165.1 cm; Wt 136.1 kg
[~2023-12-03 12:44] MED LIST changes: +HYDR15OI TP
[2023-12-03 12:46] VITALS: TEMP 98.4
--- NOTE | 2023-12-03 14:26 | NUR ---
RASH AREA ASSESSED BY DR KWOK WITH MYSELF AND NGUYEN RN ASSISTING IN OPENING THE PTS THIGHS WHICH ARE VERY THICK AND HEAVY AND SHE IS UNABLE TO MOVE THEM APART HERSELF.
[2023-12-03] MEDS ORDERED: DIME566O TP (14:32)
--- NOTE | 2023-12-03 14:32 | ERN ---
General Chief Complaint: Skin Rash/Abscess Stated Complaint: RASH Time Seen by MD: 12:47 Source: patient History of Present Illness Initial Comments THIS IS A 73-YEAR-OLD FEMALE COMING IN TO BE EVALUATED FOR VAGINAL RASH. PATIENT STATES THAT THE RASH HAS BEEN ONGOING FOR GREATER THAN ONE MONTH. PATIENT WAS PLACED DIFFERENT TOPICAL CREAMS HAVE NOT REALLY WORKED. PATIENT ALSO STATES THAT SHE HAS A NEUROGENIC BLADDER AND DOES NOT KNOW WHEN SHE URINATES. Allergies: Coded Allergies: ceftriaxone (Unverified Allergy, Unknown, ITCHING, 09/17/23) clindamycin (Unverified Allergy, Unknown, 12/01/21) vancomycin (Unverified Allergy, Unknown, 12/01/21) Home Meds Active Scripts Hydrocortisone Butyrate (Hydrocortisone Butyrate) 0.1 % Oint...g., 15 GM TP DAILY for 14 Days, #1 TUBE Prov:KAPLANVERNELL BARRLEN COURT MANAGER 09/16/23 Cephalexin Monohydrate (Keflex) 500 Mg Cap, 500 MG PO BID for 7 Days, #14 CAP Prov:JENAE KAPLAN COURT MANAGER 09/16/23 Cephalexin Monohydrate (Keflex) 500 Mg Cap, 500 MG PO TID, #21 CAP 0 Refills Prov:PRADEEP DEAN MD 01/31/22 Reported Medications Lisinopril (Lisinopril) 5 Mg Tablet, 5 MG PO DAILY, TAB 12/03/21 Bupropion HCl (Bupropion HCl) 75 Mg Tablet, 150 MG PO DAILY, TAB 12/03/21 Clopidogrel Bisulfate (Clopidogrel) 75 Mg Tablet, 75 MG PO DAILY, TAB 12/03/21 Aspirin (Aspirin) 81 Mg Tab.chew, 81 MG PO DAILY, TAB.CHEW 12/03/21 Past Medical History Past Medical History: Diabetes-Type II, Hypertension Past Surgical History: Other Social History Social History: Negative, Lives with family Female( History) History: Not Applicable ROS Dictation CONSTITUTIONAL: NO CHILLS, NO FEVER, NO WEAKNESS, NO DIAPHORESIS, NO MALAISE. HEAD/FACE: NO SIGNS OF TRAUMA. EENT: NO EYE PAIN, NO BLURRED VISION, NO TEARING, NO DOUBLE VISION, NO EAR PAIN, NO EAR DISCHARGE, NO NOSE PAIN, NO NASAL CONGESTION, NO THROAT PAIN, NO THROAT SWELLING, NO MOUTH PAIN. RESPIRATORY: NO COUGH, NO ORTHOPNEA, NO SOB, NO STRIDOR, NO WHEEZING. CARDIOVASCULAR: NO CHEST PAIN, NO EDEMA, NO PALPITATIONS, NO SYNCOPE. GASTROINTESTINAL/ABDOMINAL: NO ABDOMINAL PAIN, NO CONSTIPATION, NO DIARRHEA, NO NAUSEA, NO VOMITING. GENITOURINARY: NO ABNORMAL DISCHARGE, NO DYSURIA, NO FREQUENT URINATION, NO HEMATURIA. PRURITUS OF THE GENITALS MUSCULOSKELETAL: NO BACK PAIN, NO GOUT, NO JOINT PAIN, NO JOINT SWELLING, NO MUSCLE PAIN, NO MUSCLE STIFFNESS, NO NECK PAIN. INTEGUMENTARY: NO CHANGE IN COLOR, NO CHANGE IN HAIR/NAILS, NO DRYNESS, NO LESION, NO LUMPS, NO RASH. NEUROLOGICAL/PSYCH: NO ANXIETY, NOT DEPRESSED, NO EMOTIONAL PROBLEM, NO HEADACHE, NO NUMBNESS, NO PRE-EXISTING DEFICIT, NO HISTORY OF SEIZURES, NO TREMORS, NO WEAKNESS. HEMATOLOGIC/LYMPHATIC: NOT ANEMIC, NO HISTORY OF BLOOD CLOTS, NO APPARENT BLEEDING, NO BRUISING, GLANDS NOT SWOLLEN. ALL SYSTEMS NEGATIVE, EXCEPT NOTED. Physical Exam Physical Exam Dictation VITAL SIGNS: REVIEWED. GENERAL APPEARANCE: ALERT, ORIENTED X3, NO ACUTE DISTRESS, OBESE. HEAD AND FACE: NON-TRAUMATIC. EYES: PERRL, PINK CONJUNCTIVAS, EYELID NO TRAUMA, ANTERIOR CHAMBER CLEAR. EARS: PINNAS INTACT AND NO SIGNS OF TRAUMA OR ERYTHEMA. EAR CANALS CLEAR AND NO DISCHARGE. TMS NO ERYTHEMA. NOSE: NO DISCHARGE, NO BLEEDING. OROPHARYNX: MOUTH NORMAL, TEETH NO CARIES, TONGUE PINK. PHARYNX CLEAR, NO ERYTHEMA. TONSILS NO EXUDATES, NO ABSCESSES NOTED. MUCOUS MEMBRANE MOIST. NECK: SUPPLE, NON-TENDER, NO THYROMEGALY, NO MASSES, NO JVD, NO BRUITS. BREAST: DEFERRED. CHEST: NO TENDERNESS, NO CREPITUS, NO PARADOXICAL MOVEMENT, NO RETRACTIONS. LUNGS: CLEAR, WELL-VENTILATED, SYMMETRIC, NO RALES, NO WHEEZING, NO RHONCHI, NO STRIDOR, GOOD BREATH SOUNDS BILATERALLY. HEART: REGULAR RATE, REGULAR RHYTHM, NO MURMUR, NO GALLOPS. VASCULAR: NO PERIPHERAL EDEMA. ABDOMEN: SOFT, POSITIVE BOWEL SOUNDS, NONDISTENDED, NO GUARDING, NONTENDER, NO REBOUND, NO MASSES NO HEPATOMEGALY, NO SPLENOMEGALY, NO YATES'S SIGN, NO HERNIAS. RECTAL: DEFERRED. GENITAL: CHAPERONED BY NURSE, EXCORIATIONS OF THE PERIVAGINAL AREA NEUROLOGICAL: NORMAL SPEECH, GROSS MOTOR FUNCTION INTACT, GROSS SENSORY FUNCTION INTACT. MUSCULOSKELETAL: NECK NONTENDER, FULL RANGE OF MOTION, BACK NONTENDER, FULL RANGE OF MOTION. EXTREMITIES: NONTENDER, FULL RANGE OF MOTION. SKIN: COLOR PINK, DRY, NO TURGOR, NO RASH, NO LACERATIONS, NO ABRASIONS, NO CONTUSIONS. LYMPHATICS: DEFERRED. Results Laboratory and Microbiology Labs Reviewed?: Yes MDM MDM: DIFFERENTIAL DIAGNOSIS: NEUROGENIC BLADDER, VAGINITIS, PERIRECTAL ABRASIONS EXCORIATIONS PATIENT IS A 71-YEAR-OLD FEMALE WITH A HISTORY OF STROKE LEADING TO NEUROGENIC BLADDER PRESENTS TO THE ER WITH A RASH IN HER PERIRECTAL AND VAGINAL AREA. PATIENT HAS BEEN USING VARIOUS CREAMS WITH OUT SUCCESS. BRANDON WAS PLACED IN ORDER TO ALLEVIATE THE MOISTURE IN THAT AREA. ALSO WE WILL BE PRESCRIBING TOPIC AL CREAM TO CONTINUE HELPING WITH THE RASH. PATIENT WILL BE DISCHARGED IN STABLE CONDITION. ED Course Vital Signs Date Time Temp Pulse Resp B/P (MAP) Pulse Ox O2 Delivery O2 Flow Rate FiO2 12/03/23 12:46 98.4 103 18 142/81 98 DX & DISP Disposition: Discharge Departure Impression: Primary Impression: Neurogenic bladder Additional Impression: Vaginal atrophy Condition: Stable Scripts Dimethicone/Zinc Oxide (Boudreauxs Butt Paste Bundle) 1 %-40 % Oint...g. 566 GM TP BID for 30 Days, #1 TUBE Prov: AN KWOK MD 12/03/23 Additional Instructions: FOLLOW-UP WITH PRIMARY CARE PROVIDER IN 1 TO 2 DAYS. TAKE MEDICATIONS DIRECTED HERE IN THE EMERGENCY ROOM. OKAY TO CONTINUE HOME MEDICATIONS UNLESS OTHERWISE DISCUSSED DURING YOUR VISIT IN THE EMERGENCY ROOM TODAY. RETURN TO YOUR NEAREST EMERGENCY ROOM IF SYMPTOMS WORSEN OR IF THERE IS NO IMPROVEMENT. CALL 911 IF YOU NEED IMMEDIATE ASSISTANCE. TAKE TYLENOL [id number] NEEDED AND IF NO CONTRAINDICATIONS ARE PRESENT. INCREASE ORAL HYDRATION. A WOUND CULTURE OR URINE CULTURE WAS ORDERED HERE IN THE EMERGENCY ROOM DEPARTMENT PLEASE FOLLOW-UP WITH PRIMARY CARE PROVIDER AND ADVISE THEM TO GET REPEAT PORTS FROM OUR FACILITY. IF YOU HAD ANY OLIVER WRAP/SPLINTS THAT WERE APPLIED HERE, PLEASE DO NOT REMOVE THEM UNTIL YOU SEE YOUR PRIMARY CARE OR SPECIALTY. REFERRALS: Referrals: JUANIS AMIN (PCP) Time of Disposition: 14:29 AN KWOK MD Dec 03, 2023 14:32
--- NOTE | 2023-12-03 17:04 | NUR ---
KITTY FROM [facility]ATCH CONFIRMED PAPERWORK AND THAT PT WILL NEED CASE MANAGEMENT F/U FOR BILLING. PCS/FACESHEET READY.
--- NOTE | 2023-12-03 17:14 | NUR ---
I SPOKE TO SPOUSE AND HE IS AT HOME WAITING ON PT.
--- NOTE | 2023-12-03 18:03 | NUR ---
PT JUST NOW LEAVING. SPOUSE JUST INFORMED. REFER TO COPY OF PCS TRANSFER FORM.
[2023-12-03 18:06] VITALS: BP 137/62; PULSE 87; RESP 17; O2SAT 99
== END 2023-12-03 18:10 | disposition home or self-care (01) ==
LOC: EDH 12:44 → EDBD 12:44 → EDH 18:10
DX: N31.9 Neuromuscular dysfunction of bladder, unspecified (principal); N95.2 Postmenopausal atrophic vaginitis; E11.9 Type 2 diabetes mellitus without complications; I10 Essential (primary) hypertension; Z79.02 Long term (current) use of antithrombotics/antiplatelets; Z79.82 Long term (current) use of aspirin; Z79.899 Other long term (current) drug therapy; Z88.1 Allergy status to other antibiotic agents; Z98.890 Other specified postprocedural states
CPT/HCPCS: 51702